=== PATIENT | male | born 1995 | race Caucasian/White ===

== ENCOUNTER 2023-12-15 11:27 | Emergency (ER) | payer OTHER, SELFPAY ==
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
[2023-12-15 11:34] VITALS: BP 124/70; PULSE 67; O2SAT 99
[2023-12-15 11:39] VITALS: BP 119/71; PULSE 58; RESP 19; TEMP 36.6; O2SAT 96; BMI 20.3
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
[2023-12-15] MEDS: Cyclobenzaprine HCl 10 MG TABLET PO (13:36)
[2023-12-15] MEDS: Acetaminophen 325 MG TABLET 975 MG PO (13:37)
[2023-12-15] MEDS: Ketorolac Tromethamine 30 MG/ML VIAL IM (15:41)
[2023-12-15] MEDS: Lidocaine 4 % Patch ADH..PATCH 1 PATCH TRANSDERMA (15:42)
== END 2023-12-15 16:25 | disposition home or self-care (01) ==
PROVIDERS: Emergency Provider Student in an Organized Health Care Education/Training Program
DX: S16.1XXA Strain of muscle, fascia and tendon at neck level, initial encounter (principal); S43.401A Unspecified sprain of right shoulder joint, initial encounter; V43.52XA Car driver injured in collision with other type car in traffic accident, initial encounter; Y93.89 Activity, other specified; Y92.9 Unspecified place or not applicable; Y99.9 Unspecified external cause status; M25.511 Pain in right shoulder
CPT/HCPCS: 70450; 72125; 73030; 96372; 99284; J1885

== ENCOUNTER 2025-05-18 21:05 | Emergency (ER) | payer OTHER, SELFPAY ==
[2025-05-18 21:10] VITALS: BP 117/67; PULSE 80; RESP 16; TEMP 36.9; O2SAT 100; BMI 23.1
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
[2025-05-19] MEDS: Lidocaine HCl 1 % MPF 5 ML VIAL INFILTRATI (00:49)
[2025-05-19] MEDS: Diphth,Pertus(ACell),Tet Adult 0.5 ML SYRINGE IM (00:49)
[2025-05-19 01:02] VITALS: BP 120/87; PULSE 84; RESP 16; TEMP -17.7; TEMP 0; O2SAT 98
== END 2025-05-19 01:04 | disposition home or self-care (01) ==
PROVIDERS: Emergency Provider Internal Medicine; PCP Internal Medicine
DX: S61.215A Laceration without foreign body of left ring finger without damage to nail, initial encounter (principal); W25.XXXA Contact with sharp glass, initial encounter; Y93.89 Activity, other specified; Y92.89 Other specified places as the place of occurrence of the external cause; Y99.8 Other external cause status; Z23 Encounter for immunization
CPT/HCPCS: 12001; 90471; 90715; 99282; 99284; J2003